=== PATIENT | female | born 1975 | race Caucasian/White ===

== ENCOUNTER 2017-11-04 22:09 | Emergency (ER) | payer MEDICAID ==
[~2017-11-04] VITALS: Ht 152.4 cm; Wt 68.0 kg
[2017-11-04] MEDS ORDERED: KETOROLAC TROMETHAMINE 15 MG/ML VIAL ONE (22:59)
[2017-11-04] MEDS ORDERED: KETOROLAC TROMETHAMINE INJ 30 MG/ML VIAL IV ONE (23:00)
[2017-11-04] MEDS ORDERED: IV NS 0.9% 1,000 ML BAG IV ONE (23:00)
--- NOTE | 2017-11-04 23:00 | NUR ---
PT PRESENTED TO THE ER WITH A C/O VAGINAL BLEEDING SINCE SATURDAY. PT AMBULATED TO BED #16 WITH A STEADY GAIT. VSS.
[2017-11-04 23:09] LABS: BASOPHILS # (AUTO) 0.1 /CMM (0.0-0.2); BASOPHILS % (AUTO) 0.9 % (0.0-2.0); EOSINOPHILS % (AUTO) 4.1 % (0.0-6.0); HEMATOCRIT 36 % (33-45); LYMPHOCYTES # (AUTO) 2.3 /CMM (0.8-4.8); LYMPHOCYTES % (AUTO) 37.5 % (20.0-44.0); MEAN CORPUSCULAR HGB CONC 33 g/dl (31.0-36.0); MEAN CORPUSCULAR VOLUME 91 fL (82-100); MONOCYTES # (AUTO) 0.6 /CMM (0.1-1.30); MONOCYTES % (AUTO) 9.1 % (2.0-12.0); NEUTROPHILS % (AUTO) 48.4 % (43.0-81.0); PLATELET COUNT (AUTO) 285 /CMM (150-450); RDW COEFFICIENT OF VARIATION 14.1 (11.5-15.0); RED BLOOD CELL COUNT(AUTO) 3.96 MIL/uL (4.0-5.2); WHITE BLOOD COUNT (AUTO) 6.3 K/uL (4.3-11.0)
[2017-11-04 23:10] LABS: APPEARANCE,URINE CLEAR (CLEAR); BILIRUBIN,URINE NEGATIVE (NEGATIVE); BLOOD, URINE TRACE-INTA Ery/uL (NEGATIVE); COLOR,URINE YELLOW (YELLOW); KETONES,URINE NEGATIVE (NEGATIVE); LEUKOCYTE ESTERASE ,URINE NEGATIVE (NEGATIVE); NITRITE, URINE NEGATIVE (NEGATIVE); PROTEIN,URINE NEGATIVE (NEGATIVE); UGLUCOSE NEGATIVE (NEGATIVE); UROBILINOGEN,URINE 0.2 EU/dL (0.2)
--- NOTE | 2017-11-04 23:16 | NUR ---
US TECH ARRIVED.
[2017-11-04 23:18] LABS: WBC,URINE 0-2 /HPF (0-3)
[2017-11-04 23:19] LABS: BACTERIA,URINE Few /HPF (None Seen); SQUAMOUS EPITHELIAL CELL,UR Few /HPF (None Seen)
[2017-11-04 23:23] LABS: INR 0.96 (0.87-1.13)
[2017-11-04 23:24] LABS: CALCIUM, SERUM 8.2 mg/dL (8.5-10.1); POTASSIUM 3.6 mmol/L (3.5-5.1)
[2017-11-04 23:32] LABS: ALBUMIN 3.3 g/dL (3.4-5.0); BILIRUBIN,TOTAL 0.2 mg/dL (0.2-1.0); TOTAL PROTEIN, SERUM 6.4 g/dL (6.4-8.2)
--- NOTE | 2017-11-04 23:44 | NUR ---
US FINISHED. ESCAPESwithYOU TECH IS SPEAKING WITH DR. BATEMAN
--- NOTE | 2017-11-05 00:10 | NUR ---
PT AMBULATED TO THE BATHROOM WITH A STEADY GAIT. VSS.
--- NOTE | 2017-11-05 00:22 | NUR ---
IV removed. Catheter intact and site benign. Pressure and 4x4 applied to site. No bleeding noted.Patient discharged to home in stable condition. Written and verbal after care instructions given. Patient verbalizes understanding of instruction. PT'S DAUGHTER IS DRIVING PT HOME. VSS
[2017-11-05 00:27] VITALS: BP 138/78
== END 2017-11-05 00:22 | disposition home or self-care (01) ==
LOC: ER 22:12
DX: D25.9 Leiomyoma of uterus, unspecified (principal); Z87.440 Personal history of urinary (tract) infections; Z88.1 Allergy status to other antibiotic agents
CPT/HCPCS: 36415; 76856; 80048; 80076; 81001; 84702; 85025; 85730; 86850; 96361; 96374; 99285; A4606; J1885; J7030; Z7610; 81000-TC

== ENCOUNTER 2022-06-26 15:24 | Emergency (ER) | payer MEDICAID ==
[~2022-06-26] VITALS: Ht 167.6 cm; Wt 53.5 kg
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
--- NOTE | 2022-06-26 15:40 | NUR ---
URINE SPECIMEN COLLECTED AND SENT TO LAB.
[2022-06-26 16:13] LABS: BASOPHILS % (AUTO) 0.7 % (0.0-2.0); EOSINOPHILS % (AUTO) 5.5 % (0.0-6.0); HEMATOCRIT 34 % (33-45); HEMOGLOBIN 10.7 g/dL (11.5-14.8); LYMPHOCYTES % (AUTO) 32.1 % (20.0-44.0); MEAN CORPUSCULAR HGB CONC 32 g/dl (31.0-36.0); MEAN CORPUSCULAR VOLUME 77 fL (82-100); MONOCYTES # (AUTO) 0.5 K/uL (0.1-1.30); MONOCYTES % (AUTO) 7.7 % (2.0-12.0); NEUTROPHILS # (AUTO) 3.4 K/uL (1.8-8.9); PLATELET COUNT (AUTO) 330 K/uL (150-450); RED BLOOD CELL COUNT(AUTO) 4.37 MIL/uL (4.0-5.2); WHITE BLOOD COUNT (AUTO) 6.2 K/uL (4.3-11.0)
[2022-06-26 16:20] LABS: BILIRUBIN,URINE 1+ (NEGATIVE); COLOR,URINE YELLOW (YELLOW); LEUKOCYTE ESTERASE ,URINE NEGATIVE (NEGATIVE); NITRITE, URINE NEGATIVE (NEGATIVE); PROTEIN,URINE 2+ mg/dl (NEGATIVE); UGLUCOSE TRACE mg/dL (NEGATIVE); UROBILINOGEN,URINE 0.2 EU/dL (0.2)
--- NOTE | 2022-06-26 16:22 | NUR ---
COVID TEST COLLECTED AND SENT
--- NOTE | 2022-06-26 16:22 | NUR ---
ESTABLISHED IV ACCESS 20G LEFT FOREARM. BLOOD DRAWN AND SENT TO LAB.
[2022-06-26 16:29] LABS: ALANINE AMINOTRANSFERASE 13 U/L (12-78); ALBUMIN 3.6 g/dL (3.4-5.0); ALKALINE PHOSPHATASE 53 U/L (46-116); ASPARTATE AMINOTRANSFERASE 15 U/L (15-37); BILIRUBIN,TOTAL 0.2 mg/dL (0.2-1.0); CALCIUM, SERUM 8.8 mg/dL (8.5-10.1); CARBON DIOXIDE 25 mmol/L (21-32); CHLORIDE 106 mmol/L (98-107); CREATININE 0.8 mg/dL (0.6-1.3); GLUCOSE 71 mg/dL (74-106); POTASSIUM 3.4 mmol/L (3.5-5.1); SODIUM SERUM 139 mmol/L (136-145); TOTAL PROTEIN, SERUM 6.9 g/dL (6.4-8.2); UREA NITROGEN, BLOOD 13 mg/dL (7-18)
[2022-06-26 16:30] LABS: ACETAMINOPHEN < 10 ug/ml (10-30); ALCOHOL, BLOOD < 3 mg/dL (0-0)
[2022-06-26] MEDS ORDERED: CEFTRIAXONE 1GM BAG (ER ONLY) 1 GM/50 ML PIGGYBACK IV ONE (16:30)
[2022-06-26] MEDS ORDERED: CEFTRIAXONE 1GM BAG (ER ONLY) 50 ML IV ONE (16:36)
[2022-06-26 16:39] LABS: BACTERIA,URINE Moderate /HPF (None Seen); WBC,URINE NONE SEEN /HPF (0-3)
[2022-06-26 16:40] LABS: CALCIUM PHOSPHATE CRYSTALS,UR Few /HPF (None Seen); SQUAMOUS EPITHELIAL CELL,UR Moderate /HPF (None Seen)
--- NOTE | 2022-06-26 17:18 | NUR ---
2ND URINE SAMPLE COLLECTED AND SENT TO LAB.
--- NOTE | 2022-06-26 18:22 | NUR ---
FACE SHEET SENT TO [facility]
[2022-06-26] MEDS ORDERED: CEPH500T PO (18:31)
--- NOTE | 2022-06-26 18:31 | NUR ---
FAXED PT CLINICALS TO [facility]
--- NOTE | 2022-06-26 19:00 | NUR ---
ACCEPTED AT [facility], UNDER CARE DR. FERNANDO, PT GO TO [address] BED [address]. PLS CALL REPORT TO FULFILLMENT ASSOCIATE AT UNIT 2: [phone] EXT [phone]. [facility], WILL CALL BACK WITH [facility].
--- NOTE | 2022-06-26 19:13 | NUR ---
REPORT GIVEN TO JOE ROJAS. WAITING ON ETA CALL BACK FOR TRANSPORT.
[2022-06-26] MEDS ORDERED: HALOPERIDOL 5 MG TABLET ONE (19:56)
[2022-06-26] MEDS ORDERED: HALOPERIDOL 1 MG TABLET PO ONE (20:00)
[2022-06-26 20:01] VITALS: BP 121/75
--- NOTE | 2022-06-26 20:29 | NUR ---
[facility] TRANSP[facility] IN FACILITY, LEFT IN STABLE CONDITION, AMBULATORY WITH STEADY GAIT
== END 2022-06-26 20:52 ==
LOC: ER 15:32
DX: R45.851 Suicidal ideations (principal); R44.0 Auditory hallucinations; N39.0 Urinary tract infection, site not specified; Z20.822 Contact with and (suspected) exposure to COVID-19; Z88.1 Allergy status to other antibiotic agents; Z88.2 Allergy status to sulfonamides
CPT/HCPCS: 99285; 96365; 85025; 80048; 87086; 80076; 84703; 81001; 36415; 87426; 80143; 80320; 80307; J0696; C9803; G0480

== ENCOUNTER 2022-06-27 13:00 | Emergency (ER) | payer MEDICAID ==
[~2022-06-27] VITALS: Ht 170.2 cm; Wt 53.1 kg
[~2022-06-27 13:00] MED LIST: CEPH500T PO
[2022-06-27 13:08] VITALS: BP 119/68
--- NOTE | 2022-06-27 13:25 | NUR ---
PT SEEN BY FOR EVVANDANA
--- NOTE | 2022-06-27 13:37 | NUR ---
Patient discharged to home in stable condition. Written and verbal after care instructions given. Patient verbalizes understanding of instruction.
== END 2022-06-27 13:42 | disposition home or self-care (01) ==
LOC: ER 13:07
DX: Z76.0 Encounter for issue of repeat prescription (principal); Z87.440 Personal history of urinary (tract) infections; Z88.2 Allergy status to sulfonamides; Z88.8 Allergy status to other drugs, medicaments and biological substances; Z79.899 Other long term (current) drug therapy

== ENCOUNTER 2024-09-16 20:14 | Emergency (ER) | payer MEDICAID, OTHER ==
[~2024-09-16] VITALS: Ht 170.2 cm; Wt 63.5 kg
[2024-09-16 22:01] LABS: BASOPHILS % (AUTO) 0.6 % (0.0-2.0); EOSINOPHILS # (AUTO) 0.5 K/uL (0.0-0.7); EOSINOPHILS % (AUTO) 7.3 % (0.0-6.0); HEMATOCRIT 36 % (33-45); LYMPHOCYTES # (AUTO) 2.3 K/uL (0.8-4.8); LYMPHOCYTES % (AUTO) 34.1 % (20.0-44.0); MEAN CORPUSCULAR HEMOGLOBIN 29 PG (26.0-33.0); MEAN CORPUSCULAR HGB CONC 34 g/dl (31.0-36.0); MEAN CORPUSCULAR VOLUME 86 fL (82-100); MONOCYTES # (AUTO) 0.5 K/uL (0.1-1.30); MONOCYTES % (AUTO) 7.6 % (2.0-12.0); NEUTROPHILS # (AUTO) 3.4 K/uL (1.8-8.9); NEUTROPHILS % (AUTO) 50.4 % (43.0-81.0); PLATELET COUNT (AUTO) 298 K/uL (150-450); RED BLOOD CELL COUNT(AUTO) 4.16 MIL/uL (4.0-5.2); RED CELL DISTRIBUTION WIDTH 14.6 % (11.5-15.0); WHITE BLOOD COUNT (AUTO) 6.7 K/uL (4.3-11.0)
[2024-09-16 22:03] LABS: APPEARANCE,URINE CLEAR (CLEAR); BILIRUBIN,URINE NEGATIVE (NEGATIVE); BLOOD, URINE 1+ Ery/uL (NEGATIVE); COLOR,URINE YELLOW (YELLOW); KETONES,URINE TRACE mg/dL (NEGATIVE); LEUKOCYTE ESTERASE ,URINE NEGATIVE (NEGATIVE); NITRITE, URINE NEGATIVE (NEGATIVE); PROTEIN,URINE NEGATIVE (NEGATIVE); UGLUCOSE NEGATIVE (NEGATIVE); UROBILINOGEN,URINE 0.2 EU/dL (0.2)
[2024-09-16 22:05] LABS: PREGNANCY TEST URINE QUAL NEGATIVE (NEGATIVE)
[2024-09-16 22:11] LABS: CALCIUM, SERUM 9.1 mg/dL (8.5-10.1); CREATININE 0.6 mg/dL (0.6-1.3)
[2024-09-16 22:14] LABS: INR 0.99 (0.91-1.10); PARTIAL THROMBOPLASTIN TIME 26.8 SEC (24.3-34.3); PROTHROMBIN TIME 10.5 SECS (9.2-11.1)
[2024-09-16 22:18] LABS: ALBUMIN 3.3 g/dL (3.4-5.0); BILIRUBIN,DIRECT 0.1 mg/dL (0.0-0.2); BILIRUBIN,TOTAL 0.3 mg/dL (0.2-1.0); TOTAL PROTEIN, SERUM 6.8 g/dL (6.4-8.2)
[2024-09-16 22:26] LABS: BACTERIA,URINE Moderate /HPF (None Seen); SQUAMOUS EPITHELIAL CELL,UR Many /HPF (None Seen)
[2024-09-16 22:27] LABS: ADD URINE CULTURE YES
[2024-09-16] MEDS ORDERED: NITR100C6 PO (23:16)
[2024-09-16] MEDS ORDERED: NITROFURANTOIN/MONOHYDRATE MACROCRYSTALS 100 MG CAPSULE ONE (23:19)
[2024-09-16] MEDS: NITROFURANTOIN/MONOHYDRATE MACROCRYSTALS 100 MG CAPSULE PO ONE (23:38)
[2024-09-16 23:39] VITALS: BP 109/60; TEMP 98.4; O2SAT 99
== END 2024-09-16 23:40 | disposition home or self-care (01) ==
LOC: ER 20:17
DX: N93.9 Abnormal uterine and vaginal bleeding, unspecified (principal); J45.909 Unspecified asthma, uncomplicated; R10.2 Pelvic and perineal pain; R42 Dizziness and giddiness; Z87.440 Personal history of urinary (tract) infections; Z88.1 Allergy status to other antibiotic agents; Z88.2 Allergy status to sulfonamides
CPT/HCPCS: 36415; 76856-TC; 80048-TC; 80076-TC; 81001; 84702-TC; 84703-TC; 85025-TC; 85730-TC; 86850-TC

== ENCOUNTER 2024-09-22 20:02 | Emergency (ER) | payer OTHER ==
[~2024-09-22] VITALS: Ht 170.2 cm; Wt 63.5 kg
[~2024-09-22 20:02] MED LIST changes: +NITR100C6 PO
[2024-09-22 22:00] LABS: APPEARANCE,URINE CLEAR (CLEAR); BILIRUBIN,URINE NEGATIVE (NEGATIVE); BLOOD, URINE 1+ Ery/uL (NEGATIVE); COLOR,URINE YELLOW (YELLOW); KETONES,URINE TRACE mg/dL (NEGATIVE); LEUKOCYTE ESTERASE ,URINE NEGATIVE (NEGATIVE); NITRITE, URINE NEGATIVE (NEGATIVE); PROTEIN,URINE NEGATIVE (NEGATIVE); UGLUCOSE NEGATIVE (NEGATIVE); UROBILINOGEN,URINE 0.2 EU/dL (0.2)
[2024-09-22 22:13] LABS: ADD URINE CULTURE NO; BACTERIA,URINE Few /HPF (None Seen); WBC,URINE NONE SEEN /HPF (0-3)
[2024-09-22] MEDS ORDERED: IBUP-1492 PO (22:25)
[2024-09-22] MEDS ORDERED: FLUC150T PO (22:25)
[2024-09-22] MEDS ORDERED: METR500T PO (22:32)
[2024-09-22 22:44] VITALS: BP 115/71; TEMP 98.5; O2SAT 100
== END 2024-09-22 22:44 | disposition home or self-care (01) ==
LOC: ER 20:05
DX: N89.8 Other specified noninflammatory disorders of vagina (principal); N93.9 Abnormal uterine and vaginal bleeding, unspecified; Z87.440 Personal history of urinary (tract) infections; Z88.1 Allergy status to other antibiotic agents; Z88.2 Allergy status to sulfonamides; Z79.899 Other long term (current) drug therapy
CPT/HCPCS: 81001